=== PATIENT | male | born 1995 | race Caucasian/White ===

== ENCOUNTER 2021-08-08 13:52 | Emergency (ER) | payer OTHER ==
[2021-08-08] MEDS ORDERED: Lidocaine 1% 20 ML MDV ONE (14:06)
[2021-08-08] MEDS ORDERED: Boostrix 0.5 ML (Tdap) VIAL ONE (14:06)
[2021-08-08] MEDS ORDERED: Bacitracin 1 PK ONE (14:12)
== END 2021-08-08 15:27 | disposition home or self-care (01) ==
LOC: NAV ERS 13:52
DX: S81.812A Laceration without foreign body, left lower leg, initial encounter (principal); I10 Essential (primary) hypertension; F17.210 Nicotine dependence, cigarettes, uncomplicated; W45.8XXA Other foreign body or object entering through skin, initial encounter
CPT/HCPCS: 12032; 90471; 90715